=== PATIENT | female | born 1940 | race Caucasian/White ===

== ENCOUNTER → 2017-12-14 | Outpatient (CLI) | payer OTHER | LOC: RAD 13:51 | DX: Z12.31 Encounter for screening mammogram for malignant neoplasm of breast (principal) ==

== ENCOUNTER → 2018-02-20 | Outpatient (CLI) | payer OTHER | LOC: RAD 12:01 | DX: J18.9 Pneumonia, unspecified organism (principal); R91.8 Other nonspecific abnormal finding of lung field ==

== ENCOUNTER 2018-07-24 23:19 | Emergency (ER) | payer OTHER ==
[~2018-07-24] VITALS: Ht 149.9 cm; Wt 54.4 kg
[2018-07-24] MEDS ORDERED: NORVASC5 MG PO (23:49)
[2018-07-24] MEDS ORDERED: SIMVASTATIN40 MG PO (23:49)
[2018-07-24] MEDS ORDERED: ZETIA10 MG PO (23:49)
[2018-07-24] MEDS ORDERED: VITAMIN D3400 UNIT PO (23:50)
[2018-07-24] MEDS ORDERED: ASPIR 8181 MG PO (23:50)
[2018-07-25 00:11] LABS: ABSOLUTE NEUTROPHILS 5.4 thou/uL (1.4-8.2); BASOPHILS 0.8 % (0.0-2.0); EOSINOPHILS 3.7 % (0.0-3.0); HEMATOCRIT 44.6 % (37.0-47.0); HEMOGLOBIN 15.1 gm/dL (12.0-15.0); LYMPHOCYTES 28.4 % (24.0-44.0); MCH 29.6 pg (26.0-34.0); MCHC 33.9 g/dL (28.0-37.0); MCV 87.4 fL (80.0-100.0); MONOCYTES 9.8 % (1.0-8.0); PLATELET COUNT 287 thou/uL (150-400); POLYS 57.3 % (36.0-66.0); RDW 14.2 % (10.5-14.5); WBC 9.4 thou/uL (4.0-11.0)
[2018-07-25 00:24] LABS: ANION GAP 13 mmol/L (7-16); BUN 21 mg/dL (7-18); CALCIUM 9.5 mg/dL (8.5-10.1); CHLORIDE 106 mmol/L (98-107); CO2 23 mmol/L (21-32); CREATININE 0.9 mg/dL (0.6-1.0); GLUCOSE 109 mg/dL (74-106); SODIUM 142 mmol/L (136-145)
[2018-07-25 00:30] LABS: ALBUMIN 3.8 g/dL (3.4-5.0); SGOT 21 U/L (15-37); SGPT 15 U/L (30-65); TOTAL BILIRUBIN 0.4 mg/dL (<0.1-1.0); TOTAL PROTEIN 7.1 g/dL (6.4-8.2); TROPONIN-I <0.06 ng/mL (<0.06)
[2018-07-25 01:11] VITALS: BP 158/52
--- NOTE | 2018-07-25 13:12 | EKG ---
[place] [address] [employer] [employer] [place] [address] ELECTROCARDIOGRAM REPORT Name: NENA GREEN [id number] Admission: 07/24/18 Attend Phys: Discharge: 07/25/18 Date of : 40 Report #: [id number] THIS REPORT FOR: //name// [facility] ED Test Date: 2018-07-24 Test Time: 23:26:57 Pat Name: NENA GREEN Department: Room: Gender: F Nutrition Services Associate: SENAIT : 1940 Requested By: Chase Lopez Order Number: [id number] MD: Dave Coronado Measurements Intervals [place] Rate: 78 P: 73 [place]: 159 QRS: 60 QRSD: 79 T: 10 QT: 361 QTc: 412 Interpretive Statements Sinus rhythm Probable left atrial enlargement No previous ECG available for comparison Electronically Signed On 07-25-2018 13:12:39 [employer]AL [employer]ING SUPERVISOR by Dave Coronado [email or web address] <ELECTRONICALLY SIGNED> By: Dave Coronado MD 07/25/18 1312 [id number] Dave Coronado MD /HAIR
== END 2018-07-25 01:11 | disposition home or self-care (01) ==
LOC: ER 23:19
PROVIDERS: Emergency Medicine
DX: R07.89 Other chest pain (principal); I10 Essential (primary) hypertension; E78.5 Hyperlipidemia, unspecified

== ENCOUNTER → 2018-08-11 | Outpatient (CLI) | payer OTHER ==
[~2018-08-11] MED LIST: ASPIR 8181 MG PO; NORVASC5 MG PO; SIMVASTATIN40 MG PO; VITAMIN D3400 UNIT PO; ZETIA10 MG PO
== END ==
LOC: RAD 10:52
DX: R05 Cough (principal)

== ENCOUNTER → 2018-12-25 | Outpatient (CLI) | payer OTHER | LOC: RAD 14:51 | DX: Z12.31 Encounter for screening mammogram for malignant neoplasm of breast (principal) ==

== ENCOUNTER 2019-01-11 15:31 | Emergency (ER) | payer OTHER ==
[~2019-01-11] VITALS: Ht 149.9 cm; Wt 54.9 kg
[2019-01-11] MEDS ORDERED: SINEMET 25-1001 EAC1 PO (15:40)
[2019-01-11 16:05] LABS: ABSOLUTE NEUTROPHILS 8.7 thou/uL (1.4-8.2); BASOPHILS 0.6 % (0.0-2.0); EOSINOPHILS 0.8 % (0.0-3.0); HEMATOCRIT 45.2 % (37.0-47.0); HEMOGLOBIN 15.1 gm/dL (12.0-15.0); LYMPHOCYTES 11.8 % (24.0-44.0); MCH 29.5 pg (26.0-34.0); MCHC 33.3 g/dL (28.0-37.0); MCV 88.5 fL (80.0-100.0); MONOCYTES 6.5 % (1.0-8.0); PLATELET COUNT 261 thou/uL (150-400); POLYS 80.3 % (36.0-66.0); RBC 5.11 mil/uL (4.20-5.00); RDW 13.8 % (10.5-14.5); WBC 10.8 thou/uL (4.0-11.0)
[2019-01-11 16:12] LABS: CALCIUM 9.7 mg/dL (8.5-10.1); CREATININE 0.8 mg/dL (0.6-1.0); POTASSIUM 3.6 mmol/L (3.5-5.1)
[2019-01-11 16:18] LABS: TOTAL BILIRUBIN 0.8 mg/dL (<0.1-1.0); TOTAL PROTEIN 7.4 g/dL (6.4-8.2)
[2019-01-11 16:50] LABS: URINE BILIRUBIN NEGATIVE (Negative); URINE BLOOD 2+ (Negative); URINE CLARITY CLEAR; URINE COLOR YELLOW; URINE GLUCOSE-RANDOM* NEGATIVE (Negative); URINE KETONES NEGATIVE (Negative); URINE LEUKOCYTES-REFLEX NEGATIVE (Negative); URINE NITRITE-REFLEX NEGATIVE (Negative); URINE PROTEIN (DIPSTICK) NEGATIVE (Negative); URINE SPECIFIC GRAVITY <= 1.005 (1.005-1.035); URINE UROBILINOGEN 0.2 E.U./dl (0.2-1.0)
[2019-01-11 16:58] LABS: AMORPHOUS URATES Moderate /LPF (None Seen); BACTERIA-REFLEX 1-9 Few /HPF (None Seen); CASTS None Seen /LPF (None Seen); SQUAMOUS None Seen /LPF (0-3); URINE RBC 3-10 Few /HPF (0-2); URINE WBC-REFLEX None Seen /HPF (0-5)
[2019-01-11 18:51] VITALS: BP 120/72
[2019-01-11] MEDS ORDERED: ZANTAC 150MG T150 MG PO (18:52)
--- NOTE | 2019-01-12 07:56 | EKG ---
[address] [place] [address] ELECTROCARDIOGRAM REPORT Name: NENA GREEN [facility] #: [facility]P [facility]Anthony[facility] [id number] ������������������ Admission: 01/11/19 ������������������ Attend Phys: Discharge: 01/11/19 ������������������ Date of : 40 Report #: [id number] ����������������������������������������������������������������� [id number] THIS REPORT FOR: //name// [facility] ED Test Date: 2019-01-11 Test Time: 15:46:14 Pat Name: NENA GREEN Department: Room: Gender: F Quality Facilitator: : 1940 Requested By: Bakari Barrera Order Number: [id number] MD: Nilesh Anguiano Measurements Intervals [place] Rate: 70 P: 90 [place]: 161 QRS: 72 QRSD: 86 T: 24 QT: 392 QTc: 423 Interpretive Statements Sinus rhythm Minimal inferior repolarization abnormality No previous ECGs available for comparison Electronically Signed On 01-12-2019 7:56:16 CDT by Nilesh Anguiano [email or web address] ��������������������������������������������� <ELECTRONICALLY SIGNED> ���������������������������������������� By: Nilesh Anguiano MD, [facility] ��������������������������������������������� 01/12/19 0756 1546 1546 Nilesh Anguiano MD, FACC /EPI
== END 2019-01-11 19:00 | disposition home or self-care (01) ==
LOC: ER 15:31
PROVIDERS: Emergency Medicine
DX: R10.11 Right upper quadrant pain (principal); I10 Essential (primary) hypertension

== ENCOUNTER → 2019-08-29 | Outpatient (CLI) | payer OTHER ==
[~2019-08-29] MED LIST changes: +SINEMET 25-1001 EAC1 PO; +ZANTAC 150MG T150 MG PO
== END ==
LOC: SJCVCIMAG 09:44
DX: I65.23 Occlusion and stenosis of bilateral carotid arteries (principal); I10 Essential (primary) hypertension; E78.5 Hyperlipidemia, unspecified; Z79.82 Long term (current) use of aspirin

== ENCOUNTER → 2020-01-07 | Outpatient (CLI) | payer OTHER | LOC: RAD 10:39 | PROVIDERS: ATTEND Internal Medicine | DX: Z12.31 Encounter for screening mammogram for malignant neoplasm of breast (principal) ==

== ENCOUNTER → 2020-09-04 | Outpatient (CLI) | payer OTHER | LOC: SJCVCIMAG 07:28 | PROVIDERS: ATTEND Internal Medicine | DX: R94.31 Abnormal electrocardiogram [ECG] [EKG] (principal); G20 Parkinson's disease; I65.23 Occlusion and stenosis of bilateral carotid arteries; I10 Essential (primary) hypertension; E78.5 Hyperlipidemia, unspecified; R00.2 Palpitations; Z79.82 Long term (current) use of aspirin; Z79.899 Other long term (current) drug therapy; Z87.891 Personal history of nicotine dependence ==

== ENCOUNTER → 2021-02-11 | Outpatient (CLI) | payer OTHER | LOC: BC 10:51 | PROVIDERS: ATTEND Internal Medicine | DX: Z12.31 Encounter for screening mammogram for malignant neoplasm of breast (principal) ==

== ENCOUNTER → 2021-09-04 | Outpatient (CLI) | payer BC | LOC: SJCVCIMAG 12:59 | PROVIDERS: ATTEND Internal Medicine | DX: I08.3 Combined rheumatic disorders of mitral, aortic and tricuspid valves (principal); I65.23 Occlusion and stenosis of bilateral carotid arteries; R00.2 Palpitations ==